=== PATIENT | female | born 1935 | race Caucasian/White ===

== ENCOUNTER 2019-11-05 23:26 | Inpatient (IN) ==
[2019-11-06] MEDS ORDERED: 0.9 % Sodium Chloride 500 ML IVC ONE ×2 (00:06→02:08)
[2019-11-06 01:23] LABS: Hematocrit 31.6 % (35.3-44.9); Mean Corpuscular HGB Conc 31.6 g/dL (31.6-35.5); Mean Corpuscular Hemoglobin 30.7 pg (28.0-33.3); Mean Corpuscular Volume 96.9 fL (83.0-100.0); Mean Platelet Volume 11.2 fL (9.4-12.4); Platelet Count 126 K/mcL (140-400); Red Blood Count 3.26 M/mcL (3.82-4.97); Red Cell Distribution Width 16.9 % (11.5-14.5); White Blood Count 24.6 K/mcL (4.3-11.1)
[2019-11-06 01:26] LABS: INR 2.4; Prothrombin Time 27.4 Seconds (9.4-12.1)
[2019-11-06 01:29] LABS: Activated Partial Thrombo Time 40.3 Seconds (26.0-36.0)
[2019-11-06 01:43] LABS: Alanine Aminotransferase 11 Units/L (7-52); Albumin 3.9 g/dL (3.5-5.7); Albumin/Globulin Ratio 1.7 (1.1-2.2); Alkaline Phosphatase 81 Units/L (34-104); Aspartate Amino Transferase 14 Units/L (13-39); BUN/Creatinine Ratio 36 (6-26); Bilirubin,Total 0.9 mg/dL (0.3-1.0); Blood Urea Nitrogen 32 mg/dL (8-23); Calcium 8.2 mg/dL (8.6-10.3); Carbon Dioxide 23 mEq/L (23-29); Chloride 105 mEq/L (98-107); Globulin 2.3 g/dL (2.4-3.5); Glucose 191 mg/dL (70-105); Osmolality,Calculated 296 (280-300); Potassium 4.4 mEq/L (3.5-5.1); Sodium 137 mEq/L (136-145); Total Protein 6.2 g/dL (6.4-8.9); eGFR For African Americans > 60 (> 60); eGFR For Non-African Americans > 60 (> 60)
[2019-11-06 01:44] LABS: Monocytes # 0.5 K/mcL (0.0-1.3); Neutrophils # 19.2 K/mcL (1.6-8.9); Platelet Estimate Decreased (Normal); Reactive Lymphocytes Present (Not Present)
[2019-11-06] MEDS ORDERED: DilTIAZem 50 MG in 0.9 % Sodium Chloride 40 ML IVC SCH (01:45)
[2019-11-06] MEDS ORDERED: cefTRIAXone 1,000 MG in Water for inj. (sterile) 10 ML IVP ONE (02:07)
[2019-11-06 02:09] LABS: Thyroid Stimulating Hormone 5.831 mcIU/mL (0.340-5.600); Troponin I 0.08 ng/mL (< 0.04)
[2019-11-06 02:13] LABS: Bilirubin,Urine Negative (Negative); Blood,Urine Small (Negative); Clarity,Urine Clear (Clear); Color,Urine Yellow (Yellow); Glucose,Urine (UA) Normal (Normal); Ketones,Urine Trace mg/dL (Negative); Leukocyte Esterase,Urine Small (Negative); Nitrite,Urine Negative (Negative); PH,Urine 5.5 pH Units (5.0-8.0); Protein,Urine Trace mg/dL (Neg-Trace); Specific Gravity,Urine 1.022 (1.010-1.025); Urobilinogen,Urine Normal (Normal)
[2019-11-06 02:14] LABS: Bacteria,Urine None Seen per hpf (None-Few); Hyaline Casts,Urine None Seen per lpf (None-Few); Squamous Epithelial Cell,Urine Many per lpf (None-Few)
[2019-11-06] MEDS ORDERED: Naloxone 0.4 MG/ML INJ IVP PRN (05:18)
[2019-11-06 05:56] LABS: Magnesium 1.8 mg/dL (1.6-2.6)
[2019-11-06] MEDS ORDERED: Nitroglycerin 0.4 MG TAB.SUBL SL PRN (06:02)
[2019-11-06] MEDS ORDERED: *HR* Dextrose 50 % in Water (Syg) 50 ML SYRINGE IVP PRN (06:51)
[2019-11-06] MEDS ORDERED: D5% in Water 1,000 ML IVC PRN (06:51)
[2019-11-06] MEDS ORDERED: Dextrose Gel 15 GM/37.5 ML TUBE PO PRN ×2 (06:51)
[2019-11-06 08:08] LABS: Troponin I 0.1 ng/mL (< 0.04)
[2019-11-06] MEDS: Insulin LISPRO 300 UNITS/3 ML VIAL SQ SCH ×4 (08:42→21:42)
[2019-11-06] MEDS: Isosorbide MONOnitrate (24 HR) 60 MG TAB.ER.24H PO SCH (08:50)
[2019-11-06] MEDS: Ringers Solution, Lactated 1,000 ML IVC SCH ×2 (08:50→21:39)
[2019-11-06] MEDS: *HR* Rivaroxaban 10 MG TABLET PO SCH (16:58)
[2019-11-06] MEDS ORDERED: Ondansetron ODT 4 MG TAB.RAPDIS PO PRN (17:04)
[2019-11-06] MEDS: cefTRIAXone 1,000 MG in 0.9 % Sodium Chloride Mini Bag 100 ML IVPB SCH (20:17)
[2019-11-07] MEDS: Melatonin 3 MG TABLET PO SCH ×2 (02:15→21:18)
[2019-11-07] MEDS: Metoprolol XL (24 HR) Succ 25 MG TAB.ER.24H PO SCH (06:36)
[2019-11-07] MEDS ORDERED: *HR* Metoprolol 5 MG/5 ML VIAL IVP PRN (07:43)
[2019-11-07] MEDS: Isosorbide MONOnitrate (24 HR) 60 MG TAB.ER.24H PO SCH (07:46)
[2019-11-07] MEDS: Cholecalciferol (D-3) 1,000 UNIT (25MCG) TABLET PO SCH (07:46)
[2019-11-07] MEDS: Insulin LISPRO 300 UNITS/3 ML VIAL SQ SCH ×4 (08:03→21:13)
[2019-11-07 08:26] LABS: Mean Corpuscular Volume 97.6 fL (83.0-100.0)
[2019-11-07 08:28] LABS: Hematocrit 28.3 % (35.3-44.9); Hemoglobin 8.9 g/dL (11.5-15.4); Immature Platelets 4.8 % (1.1-6.1); Mean Corpuscular HGB Conc 31.4 g/dL (31.6-35.5); Mean Corpuscular Hemoglobin 30.7 pg (28.0-33.3); Mean Platelet Volume 11.8 fL (9.4-12.4); Red Cell Distribution Width 16.4 % (11.5-14.5); White Blood Count 8.5 K/mcL (4.3-11.1)
[2019-11-07] MEDS ORDERED: 0.9 % Sodium Chloride 500 ML IVC SCH ×2 (08:45→14:30)
[2019-11-07 08:59] LABS: BUN/Creatinine Ratio 30 (6-26); Blood Urea Nitrogen 22 mg/dL (8-23); Carbon Dioxide 23 mEq/L (23-29); Chloride 107 mEq/L (98-107); Glucose 144 mg/dL (70-105); Osmolality,Calculated 288 (280-300); Potassium 4.1 mEq/L (3.5-5.1); Sodium 136 mEq/L (136-145); eGFR For African Americans > 60 (> 60); eGFR For Non-African Americans > 60 (> 60)
[2019-11-07] MEDS ORDERED: Metoprolol XL (24 HR) Succ 25 MG TAB.ER.24H PO SCH (09:00)
[2019-11-07 09:16] LABS: Platelet Count 91 K/mcL (140-400)
[2019-11-07] MEDS: Budesonide/Formoterol 80/4.5 1 PUFF INH IH SCH (09:19)
[2019-11-07 09:20] LABS: Eosinophils # 0.2 K/mcL (0.0-0.6); Lymphocytes # 1.4 K/mcL (0.6-4.6); Neutrophils # 6.6 K/mcL (1.6-8.9); Platelet Estimate Decreased (Normal); Poikilocytosis 1+ (Not Present)
[2019-11-07 09:21] LABS: Acanthocytes 1+ (Not Present)
[2019-11-07] MEDS: *HR* Rivaroxaban 10 MG TABLET PO SCH (17:03)
[2019-11-07] MEDS: cefTRIAXone 1,000 MG in 0.9 % Sodium Chloride Mini Bag 100 ML IVPB SCH (21:19)
[2019-11-08] MEDS: Insulin LISPRO 300 UNITS/3 ML VIAL SQ SCH ×4 (06:59→21:41)
[2019-11-08] MEDS: Cholecalciferol (D-3) 1,000 UNIT (25MCG) TABLET PO SCH (07:08)
[2019-11-08] MEDS: Metoprolol XL (24 HR) Succ 25 MG TAB.ER.24H PO SCH (07:08)
[2019-11-08] MEDS: Budesonide/Formoterol 80/4.5 1 PUFF INH IH SCH (09:21)
[2019-11-08] MEDS: *HR* Rivaroxaban 10 MG TABLET PO SCH (17:10)
[2019-11-08] MEDS: Melatonin 3 MG TABLET PO SCH (21:21)
[2019-11-08] MEDS: cefTRIAXone 1,000 MG in 0.9 % Sodium Chloride Mini Bag 100 ML IVPB SCH (21:21)
[2019-11-09 00:44] LABS: Hemoglobin 8.5 g/dL (11.5-15.4); Mean Corpuscular HGB Conc 31.5 g/dL (31.6-35.5); Mean Corpuscular Hemoglobin 31.1 pg (28.0-33.3); Mean Corpuscular Volume 98.9 fL (83.0-100.0); Mean Platelet Volume 11.5 fL (9.4-12.4); Platelet Count 116 K/mcL (140-400); Red Blood Count 2.73 M/mcL (3.82-4.97); Red Cell Distribution Width 15.7 % (11.5-14.5); White Blood Count 5.7 K/mcL (4.3-11.1)
[2019-11-09 01:17] LABS: Eosinophils # 0.1 K/mcL (0.0-0.6); Lymphocytes # 2.2 K/mcL (0.6-4.6); Neutrophils # 3.4 K/mcL (1.6-8.9)
[2019-11-09 01:18] LABS: Anisocytosis 1+ (Not Present); Platelet Estimate Slight Decrease (Normal); Poikilocytosis 1+ (Not Present)
[2019-11-09] MEDS: Metoprolol XL (24 HR) Succ 25 MG TAB.ER.24H PO SCH (07:27)
[2019-11-09] MEDS: Cholecalciferol (D-3) 1,000 UNIT (25MCG) TABLET PO SCH (07:27)
[2019-11-09] MEDS: Insulin LISPRO 300 UNITS/3 ML VIAL SQ SCH ×2 (07:28→12:00)
[2019-11-09] MEDS: Budesonide/Formoterol 80/4.5 1 PUFF INH IH SCH (07:40)
[2019-11-09] MEDS ORDERED: Megestrol Acetate 400 MG/10 ML UDC PO SCH (11:15)
[2019-11-09 11:48] VITALS: BP 131/65
[2019-11-09] MEDS ORDERED: NON-FORMULARY MEDICATION 1 EACH EACH (Alendronate Sodium [Fosamax] 70 MG) PO SCH (17:04)
== END 2019-11-09 15:32 | disposition home or self-care (01) | DRG 309 ==
LOC: EMEROOARM 23:26 → 2ANU 23:26 → SUATTDRO 11-07 18:41
PROVIDERS: ADMIT Family Medicine; ATTEND Student in an Organized Health Care Education/Training Program

== ENCOUNTER 2020-02-15 09:06 | Observation (INO) ==
[2020-02-15] MEDS ORDERED: Ondansetron 4 MG/2 ML VIAL IVP ONE (09:29)
[2020-02-15] MEDS ORDERED: 0.9 % Sodium Chloride 1,000 ML IVC ONE (09:29)
[2020-02-15] MEDS ORDERED: *HR* FentaNYL (PF) 100 MCG/2 ML VIAL IVP ONE (09:29)
[2020-02-15 09:49] LABS: Basophils % 0.3 %; Hematocrit 32.5 % (35.3-44.9); Hemoglobin 10.4 g/dL (11.5-15.4); Immature Granulocytes % 0.7 % (0-4); Lymphocytes # 0.5 K/mcL (0.6-4.6); Lymphocytes % 4.7 %; Mean Corpuscular Hemoglobin 29.3 pg (28.0-33.3); Mean Corpuscular Volume 91.5 fL (83.0-100.0); Mean Platelet Volume 10.5 fL (9.4-12.4); Monocytes # 0.9 K/mcL (0.0-1.3); Monocytes % 9.2 %; Neutrophils # 8.7 K/mcL (1.6-8.9); Platelet Count 208 K/mcL (140-400); Red Blood Count 3.55 M/mcL (3.82-4.97); Red Cell Distribution Width 14.5 % (11.5-14.5); Segmented Neutrophils % 85.1 %; White Blood Count 10.2 K/mcL (4.3-11.1)
[2020-02-15 10:11] LABS: Albumin/Globulin Ratio 1.2 (1.1-2.2); Bilirubin,Total 0.9 mg/dL (0.3-1.0); Calcium 8.9 mg/dL (8.6-10.3); Globulin 3.4 g/dL (2.4-3.5); Potassium 3.6 mEq/L (3.5-5.1); Total Protein 7.4 g/dL (6.4-8.9); Troponin I 0.03 ng/mL (< 0.04)
[2020-02-15 12:49] LABS: Bacteria,Urine Few per hpf (None-Few); Bilirubin,Urine Negative (Negative); Blood,Urine Small (Negative); Calcium Oxalate Crystals,Urine Present; Clarity,Urine Turbid (Clear); Color,Urine Light-Orange (Yellow); Glucose,Urine (UA) Normal (Normal); Granular Casts,Urine Few per lpf (None Seen); Hyaline Casts,Urine Moderate per lpf (None Seen); Ketones,Urine Negative (Negative); Leukocyte Esterase,Urine Negative (Negative); Mucus,Urine Few per lpf (None-Few); Nitrite,Urine Negative (Negative); Protein,Urine 100 mg/dL (Neg-Trace); Specific Gravity,Urine 1.024 (1.010-1.025); Squamous Epithelial Cell,Urine Few per hpf (None-Few); Urobilinogen,Urine Normal (Normal)
[2020-02-15] MEDS ORDERED: Acetaminophen 325 MG TABLET PO ONE (13:00)
[2020-02-15] MEDS ORDERED: Clindamycin 600 MG/50 ML 600 MG/50 ML IV.SOLN IVPB ONE (13:07)
[2020-02-15] MEDS ORDERED: Acetaminophen 325 MG TABLET PO PRN (13:31)
[2020-02-15] MEDS ORDERED: *HR* Promethazine 25 MG/ML VIAL IVP PRN (13:31)
[2020-02-15] MEDS ORDERED: Doxycycline 100 MG in 0.9 % Sodium Chloride Mini Bag 100 ML IVPB SCH (13:38)
[2020-02-15] MEDS ORDERED: Dextrose Gel 15 GM/37.5 ML TUBE PO PRN ×2 (13:55)
[2020-02-15] MEDS ORDERED: D5% in Water 1,000 ML IVC PRN (13:55)
[2020-02-15] MEDS ORDERED: *HR* Dextrose 50 % in Water (Vial) 50 ML VIAL IVP PRN (13:55)
[2020-02-15] MEDS ORDERED: *HR* OxyCODONE Immed Rel 5 MG TABLET PO PRN (13:56)
[2020-02-15] MEDS ORDERED: Ringers Solution, Lactated 1,000 ML IVC SCH (14:00)
[2020-02-15] MEDS ORDERED: 0.9 % Sodium Chloride 1,000 ML ONE (14:19)
[2020-02-15 15:04] LABS: Adenovirus F 40/41 PCR Not detected (Not detect); Astrovirus PCR Not detected (Not detect); C.difficile Toxin A/B Gene PCR Not detected (Not detect); Campylobacter by PCR Not detected (Not detect); Cryptosporidium by PCR Not detected (Not detect); Cyclospora cayetanensis PCR Not detected (Not detect); E. coli O157 by PCR Not detected (Not detect); Entamoeba histolytica PCR Not detected (Not detect); Enteroaggregative E.coli(EAEC) Not detected (Not detect); Enteropathogenic E.coli(EPEC) Not detected (Not detect); Enterotoxigenic E.coli (ETEC) Not detected (Not detect); Giardia lamblia PCR Not detected (Not detect); Norovirus GI/GII PCR Not detected (Not detect); Plesiomonas shigelloides PCR Not detected (Not detect); Rotavirus A PCR Not detected (Not detect); Salmonella PCR Not detected (Not detect); Sapovirus PCR Not detected (Not detect); Shig/EnteroinvasiveE coli EIEC Not detected (Not detect); Shigalike tox-prod E coli STEC Not detected (Not detect); Vibrio PCR Not detected (Not detect); Vibrio cholerae PCR Not detected (Not detect); Yersinia enterocolitica PCR Not detected (Not detect)
[2020-02-15] MEDS ORDERED: Vancomycin 1 EACH in 0.9 % Sodium Chloride 250 ML IVPB SCH (16:00)
[2020-02-15 16:20] LABS: INR 1.9; Prothrombin Time 22.1 Seconds (9.4-12.1)
[2020-02-15] MEDS ORDERED: Amiodarone Premix 150 MG/100 ML BAG IVPB ONE (16:50)
[2020-02-15] MEDS: Cefepime HCl 1,000 MG in Water for inj. (sterile) 10 ML IVP SCH (16:51)
[2020-02-15] MEDS ORDERED: Ringers Solution, Lactated 1,000 ML IVC ONE (16:51)
[2020-02-15] MEDS: DilTIAZem 50 MG/50 ML IV.SOLN IVC SCH (16:54)
[2020-02-15] MEDS: Insulin LISPRO 300 UNITS/3 ML VIAL SQ SCH ×2 (16:54→20:01)
[2020-02-15] MEDS ORDERED: Ringers Solution, Lactated 500 ML IVC ONE (16:59)
[2020-02-15] MEDS ORDERED: Amiodarone Premix 360 MG/200 ML BAG IVC ONE (17:20)
[2020-02-15] MEDS: Amiodarone Premix 360 MG/200 ML BAG IVC SCH (23:51)
[2020-02-16] MEDS: DilTIAZem 50 MG/50 ML IV.SOLN IVC SCH (00:13)
[2020-02-16] MEDS: Cefepime HCl 1,000 MG in Water for inj. (sterile) 10 ML IVP SCH ×2 (03:22→16:40)
[2020-02-16 03:27] LABS: Hematocrit 27.6 % (35.3-44.9); Hemoglobin 9.2 g/dL (11.5-15.4); Mean Corpuscular HGB Conc 33.3 g/dL (31.6-35.5); Mean Corpuscular Volume 89.9 fL (83.0-100.0); Mean Platelet Volume 10.3 fL (9.4-12.4); Platelet Count 188 K/mcL (140-400); Red Blood Count 3.07 M/mcL (3.82-4.97); Red Cell Distribution Width 14.6 % (11.5-14.5); White Blood Count 7.5 K/mcL (4.3-11.1)
[2020-02-16 03:31] LABS: INR 1.3; Prothrombin Time 15.1 Seconds (9.4-12.1)
[2020-02-16 03:45] LABS: Calcium 7.9 mg/dL (8.6-10.3); Potassium 3.3 mEq/L (3.5-5.1)
[2020-02-16] MEDS: Insulin LISPRO 300 UNITS/3 ML VIAL SQ SCH ×4 (07:43→21:40)
[2020-02-16] MEDS ORDERED: *HR* HYDROcodone/Acet 5/325 mg TABLET PO PRN (08:43)
[2020-02-16] MEDS ORDERED: 0.9 % Sodium Chloride 500 ML IV ONE (11:39)
[2020-02-16] MEDS ORDERED: 0.9 % Sodium Chloride 1,000 ML IV ONE (11:40)
[2020-02-16] MEDS: Amiodarone Premix 360 MG/200 ML BAG IVC SCH (15:13)
[2020-02-16] MEDS ORDERED: *HR* Rivaroxaban 15 MG TABLET PO SCH (17:00)
[2020-02-17] MEDS: Cefepime HCl 1,000 MG in Water for inj. (sterile) 10 ML IVP SCH (03:23)
[2020-02-17 05:33] LABS: Calcium 7.8 mg/dL (8.6-10.3); Potassium 4.1 mEq/L (3.5-5.1)
[2020-02-17 06:41] VITALS: BP 121/51
[2020-02-17] MEDS: Insulin LISPRO 300 UNITS/3 ML VIAL SQ SCH (08:19)
[2020-02-17] MEDS ORDERED: Metoprolol XL (24 HR) Succ 25 MG TAB.ER.24H PO SCH (10:00)
== END 2020-02-17 12:55 | disposition home health service (06) ==
LOC: EMEROOARM 09:06 → 3BNU 09:06 → 2ANU 15:10 → 2NNU 18:23
PROVIDERS: ADMIT Internal Medicine; ATTEND Internal Medicine

== ENCOUNTER 2021-09-12 13:47 | Inpatient (IN) ==
[2021-09-12] MEDS ORDERED: Furosemide 40 MG/4 ML VIAL IVP ONE (14:01)
[2021-09-12] MEDS ORDERED: Furosemide 20 MG/2 ML VIAL IVP ONE ×2 (14:21→17:19)
[2021-09-12 14:28] LABS: Eosinophils # 0.3 K/mcL (0.0-0.6); Hematocrit 41.8 % (35.3-44.9); Hemoglobin 12.9 g/dL (11.5-15.4); Mean Corpuscular HGB Conc 30.9 g/dL (31.6-35.5); Mean Corpuscular Hemoglobin 30.5 pg (28.0-33.3); Mean Corpuscular Volume 98.8 fL (83.0-100.0); Mean Platelet Volume 10.7 fL (9.4-12.4); Monocytes # 0.8 K/mcL (0.0-1.3); Platelet Count 245 K/mcL (140-400); Red Blood Count 4.23 M/mcL (3.82-4.97); Red Cell Distribution Width 15.4 % (11.5-14.5)
[2021-09-12 14:38] LABS: INR 1.3; White Blood Count 13.1 K/mcL (4.3-11.1)
[2021-09-12 14:40] LABS: Activated Partial Thrombo Time 31.2 Seconds (26.0-36.0)
[2021-09-12 14:55] LABS: Albumin 4.3 g/dL (3.5-5.7); Albumin/Globulin Ratio 1.6 (1.1-2.2); Bilirubin,Direct 0.2 mg/dL (0.0-0.2); Bilirubin,Indirect 0.5 mg/dL (0.0-1.0); Bilirubin,Total 0.7 mg/dL (0.3-1.0); Calcium 9.2 mg/dL (8.6-10.3); Globulin 2.7 g/dL (2.4-3.5); Potassium 4.1 mEq/L (3.5-5.1); Troponin I 0.83 ng/mL (< 0.04)
[2021-09-12 15:07] LABS: Basophils # 0.5 K/mcL (0.0-0.2); Lymphocytes # 4.2 K/mcL (0.6-4.6); Neutrophils # 7.3 K/mcL (1.6-8.9); Platelet Estimate Normal (Normal); Reactive Lymphocytes Present (Not Present)
[2021-09-12 15:20] LABS: Adenovirus Not Detected (Not Detect); Bordetella Pertussis Not Detected (Not Detect); Chlamydophila pneumoniae Not Detected (Not Detect); Coronavirus 229E Not Detected (Not Detect); Coronavirus HKU1 Not Detected (Not Detect); Coronavirus NL63 Not Detected (Not Detect); Coronavirus OC43 Not Detected (Not Detect); Human Metapneumovirus Not Detected (Not Detect); Human Rhinovirus/Enterovirus Not Detected (Not Detect); Influenza A Subtype 2009 H1 Not Detected (Not Detect); Influenza B Not Detected (Not Detect); Mycoplasma pneumoniae Not Detected (Not Detect); Parainfluenza Virus 1 Not Detected (Not Detect); Parainfluenza Virus 2 Not Detected (Not Detect); Parainfluenza Virus 3 Not Detected (Not Detect); Parainfluenza Virus 4 Not Detected (Not Detect); Respiratory Syncytial Virus Not Detected (Not Detect); SARS-CoV-2 Not Detected (Not Detect)
[2021-09-12] MEDS ORDERED: Naloxone 0.4 MG/ML INJ IVP PRN (19:17)
[2021-09-12] MEDS ORDERED: Melatonin 3 MG TABLET PO PRN (19:17)
[2021-09-12] MEDS ORDERED: *HR* Dextrose 50 % in Water (Syg) 50 ML SYRINGE IVP PRN (19:24)
[2021-09-12] MEDS ORDERED: Dextrose 4 GM Chewable Tablets PO PRN ×2 (19:24)
[2021-09-12] MEDS ORDERED: D5% in Water 1,000 ML IVC PRN (19:24)
[2021-09-12] MEDS ORDERED: Perflutren Lipid Microsphere 1.3 ML in 0.9 % Sodium Chloride 8.7 ML IVP PRN (19:35)
[2021-09-12] MEDS ORDERED: *HR* Heparin 5,000 UNIT/ML VIAL IVP PRN ×2 (22:36)
[2021-09-12] MEDS ORDERED: *HR* Heparin 5,000 UNIT/ML VIAL IVP ONE (22:36)
[2021-09-12] MEDS: Cholestyramine 4 GM POWD.PACK PO SCH (22:54)
[2021-09-12] MEDS: Insulin LISPRO 300 UNITS/3 ML VIAL SUBQ SCH (22:56)
[2021-09-12 23:03] LABS: Heparin anti-factor XA UFH 0.32 IU/mL (0.30-0.70); INR 1.2; Prothrombin Time 13.4 Seconds (9.4-12.1)
[2021-09-12 23:06] LABS: Activated Partial Thrombo Time 21.9 Seconds (26.0-36.0)
[2021-09-12] MEDS: Heparin 25,000UNIT/250ML 1/2NS 25,000 UNIT/250 ML IV.SOLN IVC SCH (23:27)
[2021-09-13] MEDS: Ondansetron 4 MG/2 ML VIAL IVP PRN (03:31)
[2021-09-13 04:56] LABS: Magnesium 1.6 mg/dL (1.6-2.6); Phosphorous 3.8 mg/dL (2.7-4.5)
[2021-09-13 05:03] LABS: INR 1.3; Prothrombin Time 14.1 Seconds (9.4-12.1)
[2021-09-13 05:15] LABS: Heparin anti-factor XA UFH 1.17 IU/mL (0.30-0.70)
[2021-09-13 05:25] LABS: Basophils % 0.2 %; Eosinophils % 0.1 %; Hematocrit 35.5 % (35.3-44.9); Hemoglobin 11.8 g/dL (11.5-15.4); Immature Granulocytes % 0.3 % (0-4); Lymphocytes # 1.4 K/mcL (0.6-4.6); Lymphocytes % 11.8 %; Mean Corpuscular HGB Conc 33.2 g/dL (31.6-35.5); Mean Corpuscular Hemoglobin 30.7 pg (28.0-33.3); Mean Corpuscular Volume 92.4 fL (83.0-100.0); Mean Platelet Volume 10.1 fL (9.4-12.4); Monocytes # 0.9 K/mcL (0.0-1.3); Monocytes % 8.1 %; Neutrophils # 9.2 K/mcL (1.6-8.9); Platelet Count 192 K/mcL (140-400); Red Blood Count 3.84 M/mcL (3.82-4.97); Red Cell Distribution Width 15.3 % (11.5-14.5); Segmented Neutrophils % 79.5 %; White Blood Count 11.5 K/mcL (4.3-11.1)
[2021-09-13] MEDS: Insulin LISPRO 300 UNITS/3 ML VIAL SUBQ SCH ×4 (07:10→21:18)
[2021-09-13] MEDS: Furosemide 40 MG/4 ML VIAL IVP SCH ×2 (07:57→21:18)
[2021-09-13] MEDS ORDERED: Cholestyramine 4 GM POWD.PACK PO SCH (09:00)
[2021-09-13] MEDS: Budesonide/Formoterol 80/4.5 1 PUFF INH IH SCH (20:02)
[2021-09-13] MEDS: Cholestyramine 4 GM POWD.PACK PO SCH (21:17)
[2021-09-13] MEDS ORDERED: 0.9 % Sodium Chloride 250 ML IVC ONE (23:33)
[2021-09-14] MEDS ORDERED: *HR* Metoprolol 5 MG/5 ML VIAL IVP ONE (05:26)
[2021-09-14] MEDS ORDERED: 0.9 % Sodium Chloride 1,000 ML ONE (07:24)
[2021-09-14] MEDS ORDERED: Amiodarone 150 MG in D5% in Water 100 ML IVPB ONE (07:29)
[2021-09-14] MEDS ORDERED: Amiodarone Premix 150 MG/100 ML BAG IVPB ONE ×2 (07:33→07:34)
[2021-09-14] MEDS: Insulin LISPRO 300 UNITS/3 ML VIAL SUBQ SCH ×4 (07:58→20:34)
[2021-09-14] MEDS: Furosemide 40 MG/4 ML VIAL IVP SCH (07:58)
[2021-09-14] MEDS: Amiodarone Premix 360 MG/200 ML BAG IVC ONE ×2 (08:00→08:13)
[2021-09-14] MEDS: Budesonide/Formoterol 80/4.5 1 PUFF INH IH SCH ×2 (08:05→20:23)
[2021-09-14 08:18] LABS: Hematocrit 34.9 % (35.3-44.9); Hemoglobin 11.6 g/dL (11.5-15.4); Mean Corpuscular HGB Conc 33.2 g/dL (31.6-35.5); Mean Corpuscular Hemoglobin 30.2 pg (28.0-33.3); Mean Corpuscular Volume 90.9 fL (83.0-100.0); Mean Platelet Volume 10.5 fL (9.4-12.4); Platelet Count 177 K/mcL (140-400); Red Blood Count 3.84 M/mcL (3.82-4.97); Red Cell Distribution Width 15.3 % (11.5-14.5); White Blood Count 7.9 K/mcL (4.3-11.1)
[2021-09-14] MEDS: Heparin 25,000UNIT/250ML 1/2NS 25,000 UNIT/250 ML IV.SOLN IVC SCH (08:25)
[2021-09-14 08:40] LABS: Calcium 8.4 mg/dL (8.6-10.3); Magnesium 1.9 mg/dL (1.6-2.6); Potassium 3.7 mEq/L (3.5-5.1)
[2021-09-14 08:45] LABS: Troponin I 27.26 ng/mL (< 0.04)
[2021-09-14 10:06] LABS: Thyroid Stimulating Hormone 4.2 mcIU/mL (0.340-5.600)
[2021-09-14] MEDS: 0.9 % Sodium Chloride 1,000 ML IVC SCH ×2 (10:16→20:48)
[2021-09-14] MEDS: *HR* Rivaroxaban 10 MG TABLET PO SCH ×2 (14:32→15:32)
[2021-09-14] MEDS: Amiodarone Premix 360 MG/200 ML BAG IVC SCH (14:32)
[2021-09-14] MEDS ORDERED: Simethicone 80 MG TAB.CHEW PO PRN (14:55)
[2021-09-14] MEDS: Cholestyramine 4 GM POWD.PACK PO SCH (20:48)
[2021-09-14] MEDS ORDERED: Albumin 25% 25gram/100mL 25 GM/100 ML IV.SOLN ONE (22:08)
[2021-09-14] MEDS ORDERED: Albumin 25% 25gram/100mL 25 GM/100 ML IV.SOLN IVPB ONE (22:09)
[2021-09-15] MEDS ORDERED: 0.9 % Sodium Chloride 250 ML IVC ONE ×2 (00:31→04:54)
[2021-09-15] MEDS: Amiodarone Premix 360 MG/200 ML BAG IVC SCH (01:56)
[2021-09-15] MEDS: 0.9 % Sodium Chloride 1,000 ML IVC SCH (04:08)
[2021-09-15] MEDS ORDERED: Acetaminophen IV 1,000 MG/100 ML BAG IVPB ONE (04:22)
[2021-09-15] MEDS ORDERED: Albumin 25% 25gram/100mL 25 GM/100 ML IV.SOLN ONE (07:12)
[2021-09-15] MEDS ORDERED: Albumin 25% 25gram/100mL 25 GM/100 ML IV.SOLN IVPB ONE (07:13)
[2021-09-15] MEDS ORDERED: Lidocaine -MPF 1% 5 ML AMPUL INFILT ONE (07:40)
[2021-09-15] MEDS: Budesonide/Formoterol 80/4.5 1 PUFF INH IH SCH ×2 (08:00→20:05)
[2021-09-15] MEDS: Insulin LISPRO 300 UNITS/3 ML VIAL SUBQ SCH ×4 (08:20→20:42)
[2021-09-15] MEDS ORDERED: lisinopriL 5 MG TABLET PO SCH (09:00)
[2021-09-15] MEDS ORDERED: Furosemide 40 MG TABLET PO SCH (09:00)
[2021-09-15] MEDS: Ondansetron 4 MG/2 ML VIAL IVP PRN ×2 (09:24→17:09)
[2021-09-15] MEDS ORDERED: Isovue-370 500 ML BOTTLE IVP ONE (09:59)
[2021-09-15] MEDS ORDERED: Perflutren Lipid Microsphere 1.3 ML in 0.9 % Sodium Chloride 8.7 ML IVP PRN (10:09)
[2021-09-15] MEDS ORDERED: *HR* Amiodarone 200 MG TABLET PO SCH (10:15)
[2021-09-15] MEDS: *HR* Amiodarone 200 MG TABLET PO SCH ×2 (10:34→20:47)
[2021-09-15] MEDS ORDERED: *HR* Heparin 5,000 UNIT/ML VIAL IVP ONE (11:06)
[2021-09-15] MEDS ORDERED: *HR* Heparin 5,000 UNIT/ML VIAL IVP PRN ×2 (11:06)
[2021-09-15] MEDS ORDERED: Heparin 25,000UNIT/250ML 1/2NS 25,000 UNIT/250 ML IV.SOLN IVC SCH (11:15)
[2021-09-15 12:48] LABS: Heparin anti-factor XA UFH 0.62 IU/mL (0.30-0.70)
[2021-09-15 12:49] LABS: INR 1.4; Prothrombin Time 16.1 Seconds (9.4-12.1)
[2021-09-15] MEDS: Heparin 25,000UNIT/250ML 1/2NS 25,000 UNIT/250 ML IV.SOLN IVC SCH (13:03)
[2021-09-15 13:30] LABS: Basophils % 0.4 %; Eosinophils % 0.4 %; Hemoglobin 9.1 g/dL (11.5-15.4); Immature Granulocytes % 0.6 % (0-4); Lymphocytes # 0.5 K/mcL (0.6-4.6); Lymphocytes % 6.3 %; Mean Corpuscular HGB Conc 32.5 g/dL (31.6-35.5); Mean Corpuscular Volume 95.2 fL (83.0-100.0); Mean Platelet Volume 10.9 fL (9.4-12.4); Monocytes # 0.8 K/mcL (0.0-1.3); Monocytes % 9.4 %; Platelet Count 139 K/mcL (140-400); Red Blood Count 2.94 M/mcL (3.82-4.97); Red Cell Distribution Width 15.6 % (11.5-14.5); Segmented Neutrophils % 82.9 %; White Blood Count 8.4 K/mcL (4.3-11.1)
[2021-09-15 16:08] LABS: Hematocrit 28.6 % (35.3-44.9)
[2021-09-15 17:22] LABS: BUN/Creatinine Ratio 31 (6-26); Blood Urea Nitrogen 28 mg/dL (8-23); Calcium 7.2 mg/dL (8.6-10.3); Carbon Dioxide 21 mEq/L (23-29); Chloride 105 mEq/L (98-107); Creatine Kinase 94 Units/L (30-223); Glucose 233 mg/dL (70-105); Lipase 42 Units/L (11-82); Osmolality,Calculated 291 (280-300); Sodium 134 mEq/L (136-145); eGFR For African Americans > 60 (> 60); eGFR For Non-African Americans > 60 (> 60)
[2021-09-15 17:32] LABS: Bilirubin,Urine Negative (Negative); Blood,Urine Moderate (Negative); Clarity,Urine Clear (Clear); Color,Urine Colorless (Yellow); Glucose,Urine (UA) Normal (Normal); Hyaline Casts,Urine Few per lpf (None Seen); Ketones,Urine 20 mg/dL (Negative); Leukocyte Esterase,Urine Negative (Negative); Mucus,Urine Few per lpf (None-Few); Nitrite,Urine Negative (Negative); Protein,Urine 50 mg/dL (Neg-Trace); RBC,Urine 15-30 per hpf (0-3); Specific Gravity,Urine > 1.030 (1.010-1.025); Squamous Epithelial Cell,Urine Few per hpf (None-Few); Urobilinogen,Urine Normal (Normal); WBC,Urine 15-30 per hpf (0-3)
[2021-09-15 19:58] LABS: Hematocrit 28.4 % (35.3-44.9); Hemoglobin 9.1 g/dL (11.5-15.4)
[2021-09-15] MEDS: Cholestyramine 4 GM POWD.PACK PO SCH (20:47)
[2021-09-15] MEDS ORDERED: Acetaminophen 325 MG TABLET PO PRN (23:19)
[2021-09-16] MEDS ORDERED: Albumin 25% 25gram/100mL 25 GM/100 ML IV.SOLN IVPB ONE (02:10)
[2021-09-16] MEDS: Ondansetron 4 MG/2 ML VIAL IVP PRN (04:29)
[2021-09-16 05:04] LABS: Hemoglobin 8.7 g/dL (11.5-15.4); Immature Granulocytes % 0.3 % (0-4); Mean Corpuscular Volume 94.4 fL (83.0-100.0); Platelet Count 137 K/mcL (140-400)
[2021-09-16 05:05] LABS: Basophils % 0.4 %; Eosinophils # 0.2 K/mcL (0.0-0.6); Eosinophils % 2.2 %; Immature Platelets 6.3 % (1.1-6.1); Lymphocytes # 1.2 K/mcL (0.6-4.6); Lymphocytes % 17.4 %; Mean Corpuscular HGB Conc 32.2 g/dL (31.6-35.5); Mean Corpuscular Hemoglobin 30.4 pg (28.0-33.3); Mean Platelet Volume 11.6 fL (9.4-12.4); Monocytes # 0.7 K/mcL (0.0-1.3); Monocytes % 10.7 %; Neutrophils # 4.6 K/mcL (1.6-8.9); Red Blood Count 2.86 M/mcL (3.82-4.97); White Blood Count 6.7 K/mcL (4.3-11.1)
[2021-09-16 05:24] LABS: BUN/Creatinine Ratio 30 (6-26); Blood Urea Nitrogen 31 mg/dL (8-23); Calcium 7.8 mg/dL (8.6-10.3); Carbon Dioxide 21 mEq/L (23-29); Chloride 104 mEq/L (98-107); Glucose 176 mg/dL (70-105); Osmolality,Calculated 289 (280-300); Potassium 4.1 mEq/L (3.5-5.1); Sodium 134 mEq/L (136-145); eGFR For African Americans > 60 (> 60); eGFR For Non-African Americans 50 (> 60)
[2021-09-16] MEDS: *HR* Amiodarone 200 MG TABLET PO SCH ×2 (07:30→23:21)
[2021-09-16] MEDS: Insulin LISPRO 300 UNITS/3 ML VIAL SUBQ SCH ×4 (07:30→21:25)
[2021-09-16] MEDS: Budesonide/Formoterol 80/4.5 1 PUFF INH IH SCH ×2 (07:33→20:00)
[2021-09-16] MEDS ORDERED: Metoclopramide 10 MG/2 ML VIAL IVP ONE (07:38)
[2021-09-16] MEDS: Calcium Gluconate 1gm/50mL 1 GM/50 ML BAG IVPB SCH ×2 (10:04→10:52)
[2021-09-16] MEDS ORDERED: Acetaminophen 325 MG TABLET PO PRN (14:58)
[2021-09-16] MEDS: Cholestyramine 4 GM POWD.PACK PO SCH (19:17)
[2021-09-17] MEDS: Heparin 25,000UNIT/250ML 1/2NS 25,000 UNIT/250 ML IV.SOLN IVC SCH (04:23)
[2021-09-17 05:20] LABS: Basophils % 0.3 %; Eosinophils # 0.2 K/mcL (0.0-0.6); Eosinophils % 2.5 %; Hemoglobin 8.9 g/dL (11.5-15.4); Immature Granulocytes % 0.3 % (0-4); Lymphocytes # 1.1 K/mcL (0.6-4.6); Lymphocytes % 18.2 %; Mean Corpuscular Hemoglobin 31.1 pg (28.0-33.3); Mean Corpuscular Volume 94.4 fL (83.0-100.0); Mean Platelet Volume 11.1 fL (9.4-12.4); Monocytes # 0.6 K/mcL (0.0-1.3); Monocytes % 9.7 %; Neutrophils # 4.3 K/mcL (1.6-8.9); Platelet Count 146 K/mcL (140-400); Red Blood Count 2.86 M/mcL (3.82-4.97); Red Cell Distribution Width 15.9 % (11.5-14.5); White Blood Count 6.3 K/mcL (4.3-11.1)
[2021-09-17 05:48] LABS: BUN/Creatinine Ratio 37 (6-26); Blood Urea Nitrogen 39 mg/dL (8-23); Calcium 8.1 mg/dL (8.6-10.3); Carbon Dioxide 19 mEq/L (23-29); Chloride 105 mEq/L (98-107); Glucose 177 mg/dL (70-105); Osmolality,Calculated 294 (280-300); Potassium 4.4 mEq/L (3.5-5.1); Sodium 135 mEq/L (136-145); eGFR For African Americans > 60 (> 60); eGFR For Non-African Americans 50 (> 60)
[2021-09-17] MEDS: Budesonide/Formoterol 80/4.5 1 PUFF INH IH SCH (07:32)
[2021-09-17] MEDS: *HR* Amiodarone 200 MG TABLET PO SCH (07:48)
[2021-09-17] MEDS: Insulin LISPRO 300 UNITS/3 ML VIAL SUBQ SCH ×2 (07:49→11:38)
[2021-09-17] MEDS ORDERED: Metoprolol XL (24 HR) Succ 25 MG TAB.ER.24H PO SCH (09:00)
[2021-09-17] MEDS ORDERED: lisinopriL 5 MG TABLET PO SCH (12:30)
[2021-09-17 14:37] VITALS: TEMP 98.5
[2021-09-17 14:56] VITALS: BP 101/60; PULSE 63; O2SAT 98
[2021-09-17] MEDS ORDERED: *HR* Rivaroxaban 15 MG TABLET PO SCH (17:00)
== END 2021-09-17 16:22 | disposition home or self-care (01) | DRG 280 ==
LOC: EMEROOARM 13:47 → 2NENU 13:47 → SUATTDRO 18:34 → 2NENU 20:20 → SUATTDRO 09-14 14:21
PROVIDERS: ADMIT Student in an Organized Health Care Education/Training Program; ATTEND Internal Medicine

== ENCOUNTER 2021-09-19 07:06 | Observation (INO) ==
[2021-09-19 07:18] VITALS: TEMP 94.6
[2021-09-19 07:56] LABS: Basophils % 0.1 %; Eosinophils # 0.1 K/mcL (0.0-0.6); Eosinophils % 0.4 %; Hematocrit 31.5 % (35.3-44.9); Hemoglobin 9.9 g/dL (11.5-15.4); Immature Granulocytes % 0.4 % (0-4); Lymphocytes # 2.9 K/mcL (0.6-4.6); Mean Corpuscular HGB Conc 31.4 g/dL (31.6-35.5); Mean Corpuscular Hemoglobin 30.3 pg (28.0-33.3); Mean Corpuscular Volume 96.3 fL (83.0-100.0); Mean Platelet Volume 11.3 fL (9.4-12.4); Monocytes # 0.9 K/mcL (0.0-1.3); Monocytes % 6.6 %; Neutrophils # 9.9 K/mcL (1.6-8.9); Platelet Count 230 K/mcL (140-400); Red Blood Count 3.27 M/mcL (3.82-4.97); Red Cell Distribution Width 15.9 % (11.5-14.5); Segmented Neutrophils % 71.5 %
[2021-09-19 07:59] LABS: White Blood Count 13.9 K/mcL (4.3-11.1)
[2021-09-19 08:07] LABS: Activated Partial Thrombo Time 34.7 Seconds (26.0-36.0)
[2021-09-19 08:18] LABS: INR 4.7; Prothrombin Time 52.1 Seconds (9.4-12.1)
[2021-09-19 08:22] LABS: Albumin 4.1 g/dL (3.5-5.7); Albumin/Globulin Ratio 1.7 (1.1-2.2); Bilirubin,Direct 0.6 mg/dL (0.0-0.2); Bilirubin,Indirect 0.8 mg/dL (0.0-1.0); Bilirubin,Total 1.4 mg/dL (0.3-1.0); Calcium 8.9 mg/dL (8.6-10.3); Globulin 2.4 g/dL (2.4-3.5); Magnesium 2.4 mg/dL (1.6-2.6); Potassium 4.8 mEq/L (3.5-5.1); Total Protein 6.5 g/dL (6.4-8.9); Troponin I 5.87 ng/mL (< 0.04)
[2021-09-19 08:35] LABS: VBG HCO3 8 mEq/L (21-27); VBG PCO2 22 mmHg (41-51); VBG PH 7.16 pH Units (7.32-7.42); VBG PO2 203 mmHg (25-50)
[2021-09-19] MEDS ORDERED: Sodium Bicarbonate 50 MEQ/50 ML VIAL IVP ONE (08:36)
[2021-09-19] MEDS ORDERED: 0.9 % Sodium Chloride 1,000 ML IV ONE (08:39)
[2021-09-19] MEDS ORDERED: Sodium Bicarbonate 150 MEQ in Water for inj. (sterile) 1,000 ML IVC SCH (08:45)
[2021-09-19 09:04] LABS: ABG PCO2 < 13 mmHg (35-45); ABG PH 7.31 pH Units (7.32-7.45); ABG PO2 181 mmHg (85-104)
[2021-09-19] MEDS ORDERED: Morphine Sulfate 2 MG/ML SYRINGE IVP ONE (10:04)
[2021-09-19 11:04] VITALS: BP 89/37; PULSE 47; O2SAT 84
[2021-09-19] MEDS ORDERED: *HR* LORazepam 2 MG/ML VIAL IVP PRN (11:29)
[2021-09-19] MEDS ORDERED: Naloxone 0.4 MG/ML INJ IVP PRN (11:29)
[2021-09-19] MEDS ORDERED: *HR* HYDROmorphone (PF) 1 MG/ML SYRINGE IVP PRN (11:29)
[2021-09-19] MEDS ORDERED: Atropine Sulfate 1% 40 DROP/2 ML BOTTLE SL PRN (11:29)
[2021-09-19] MEDS ORDERED: Ondansetron 4 MG/2 ML VIAL IVP PRN (11:29)
== END 2021-09-19 12:30 | disposition expired ==
LOC: 2ANU 07:06 → EMEROOARM 07:06 → 2ANU 12:00
PROVIDERS: ADMIT Internal Medicine; ATTEND Internal Medicine